=== PATIENT | female | born 1985 | race Hispanic/Latino ===

== ENCOUNTER 2016-09-27 14:36 | Inpatient (IN) | payer OTHER ==
[~2016-09-27] VITALS: Ht 160 cm; Wt 80.0 kg
[2016-09-27] VITALS (13 sets, daily range): BP systolic 112–140; BP diastolic 61–86
[~2016-09-27 14:36] MED LIST: PREN27TA3 PO
[2016-09-27] MEDS ORDERED: PENICILLIN G POTASSIUM IV 5 MU in D5W MINI-BAG PLUS 100 ML IV STA (16:35)
[2016-09-27] MEDS ORDERED: LR 1,000 ML IV SCH (16:35)
[2016-09-27] MEDS ORDERED: OXYTOCIN DRIP 30 UNITS in APPROPRIATE DILUENT 1 EA IV SCH (16:45)
[2016-09-27 17:03] LABS: MEAN CORPUSCULAR HEMOGLOBIN 32.4 pg (27.0-33.0); MEAN CORPUSCULAR HGB CONC 35.1 g/dl (32.0-36.5); MEAN CORPUSCULAR VOLUME 92.1 fl (80.0-96.0); WHITE BLOOD COUNT 7.4 K/mm3 (4.0-10.0)
[2016-09-28] VITALS (41 sets, daily range): BP systolic 109–160; BP diastolic 63–93
[2016-09-28] MEDS ORDERED: FENTANYL 2MCG/ML ROPIVACAINE 0.2% NACL 250 ML CADD As Ordered ONE (01:22)
[2016-09-28] MEDS ORDERED: PENICILLIN G POTASSIUM IV 5 MU in D5W MINI-BAG PLUS 100 ML IV STA (01:26)
[2016-09-28] MEDS ORDERED: FENTANYL/ROPIVACAINE/NACL CADD 250 ML EPIDURAL SCH (04:00)
[2016-09-28] MEDS ORDERED: NALOXONE INJ 0.4 MG/1 ML VIAL (J2310) IV PRN (04:00)
[2016-09-28] MEDS ORDERED: EPIDURAL/PCA KEYS XX PRN (04:00)
[2016-09-28] MEDS ORDERED: ONDANSETRON 4MG/2ML VIAL (J2405) IV PRN ×2 (04:00→07:45)
[2016-09-28] MEDS ORDERED: diphenhydrAMINE INJ 50MG/ML VIAL (J1200) IV PRN (04:00)
[2016-09-28] MEDS ORDERED: ePHEDrine SULFATE 25 MG/5 ML(5MG/ML) SYRINGE IV PRN (04:00)
[2016-09-28] MEDS ORDERED: LACTATED RINGER'S 1000 ML IV PRN (04:00)
[2016-09-28] MEDS ORDERED: EPIDURAL COMMENT XX SCH (04:00)
[2016-09-28] MEDS ORDERED: REFRIGERATOR IV KEYS XX PRN (04:00)
[2016-09-28] MEDS ORDERED: PENICILLIN G POTASSIUM IV 2.5 MU in D5W 100 ML IV SCH (05:30)
[2016-09-28] MEDS ORDERED: ERYTHROMYCIN OPHTH OINT As Ordered ONE (06:30)
[2016-09-28] MEDS ORDERED: PHYTONADIONE 1 MG/0.5 ML SYRINGE (J3430) As Ordered ONE (06:30)
[2016-09-28] MEDS ORDERED: HEPATITIS B VAC *BIRTH DOSE ONLY*(ENGERIX) 10 MCG/0.5 ML SYRINGE As Ordered ONE (06:30)
[2016-09-28] MEDS ORDERED: OXYTOCIN DRIP 30 UNITS in APPROPRIATE DILUENT 1 EA IV SCH (07:43)
[2016-09-28] MEDS ORDERED: PROMETHAZINE 25 MG TAB PO PRN (07:45)
[2016-09-28] MEDS ORDERED: MEASLES,MUMPS,RUBELLA VACCINE INJ (MMR-II) (90707) SC SCH (07:45)
[2016-09-28] MEDS ORDERED: RHOGAM 300 MCG (1500 IU) INJ (J2790) IM SCH (07:45)
[2016-09-28] MEDS ORDERED: DIBUCAINE 1% OINTMENT 30GM TOP PRN (07:45)
[2016-09-28] MEDS ORDERED: METHYLERGONOVINE MALEATE 0.2 MG/ML VIAL (J2210) IM PRN (07:45)
[2016-09-28] MEDS: DOCUSATE SODIUM 100 MG CAP PO SCH ×2 (09:37→22:53)
[2016-09-28] MEDS: IBUPROFEN 800 MG TAB PO PRN ×2 (09:38→15:58)
[2016-09-28] MEDS: PRENATAL VITAMIN TAB PO SCH (09:38)
--- NOTE | 2016-09-28 09:43 | IPNPDOC ---
Text Note Date of Service The patient was seen on 09/28/16 at 09:37. NOTE 3.5 hrs s/p c/b significant edema and lacs/repair. Packing in place by Dr Amaya. Alerted by RN that she was tachycardia with nl BP's however. UO is adequate and she is not dizzy or light-headed. EBL was 500. VS noted FH at U, firm Packing in place, not blood soaked. My plan is to get a CBC now as it has been almost 4 hrs since delivery time to document where we're at now. Possibility of blood accumulating behind the packing although unlikely. Plan on removal of packing this afternoon/evening Sessions VS,Nithin, I+O VSNithin, I+O Laboratory Tests 09/27/16 16:52 Red Blood Count 3.78 L, Mean Corpuscular Volume 92.1, Mean Corpuscular Hemoglobin 32.4, Mean Corpuscular Hemoglobin Concent 35.1, Red Cell Distribution Width 14.0 Vital Signs Date Time Temp Pulse Resp B/P Pulse Ox O2 Delivery O2 Flow Rate FiO2 09/28/16 07:35 98.2 110 18 116/68 09/28/16 02:30 98 SESSIONS,TAMAR Ribera MD Sep 28, 2016 09:43
[2016-09-28 10:11] LABS: BASO % 0.2 % (0.0-1.0); EOS # 0.1 K/mm3 (0.0-0.50); EOS % 0.5 % (0.0-3.0); LARGE UNSTAINED CELL # 0.2 K/mm3 (0.0-0.4); LARGE UNSTAINED CELL % 1.4 % (0.0-4.0); LYMPH # 1.2 K/mm3 (1.5-4.5); LYMPH % 9.3 % (24.0-44.0); MEAN CORPUSCULAR HEMOGLOBIN 31.9 pg (27.0-33.0); MEAN CORPUSCULAR HGB CONC 34.6 g/dl (32.0-36.5); MEAN CORPUSCULAR VOLUME 92.2 fl (80.0-96.0); MONO # 0.7 K/mm3 (0.0-0.8); MONO % 5.4 % (0.0-5.0); NEUTROPHILS # 10.4 K/mm3 (1.8-7.7); NEUTROPHILS % 83.2 % (36.0-66.0); PLATELET COUNT, AUTOMATED 138 k/mm3 (150-450); WHITE BLOOD COUNT 12.5 K/mm3 (4.0-10.0)
[2016-09-28] MEDS: ACETAMINOPHEN 500 MG TAB PO PRN ×2 (12:57→22:54)
--- NOTE | 2016-09-28 22:17 | IPNPDOC ---
Text Note Date of Service The patient was seen on 09/28/16 at 22:13. NOTE Earlier CBC unremarkable and expected with EBL. Pt and nurse states bleeding has been minimal. No complaints, wants her packing and starks out. Ambulatory, pain controlled. VSS, slight intermittent tachycardia Packing all removed, no significant VB noted Pt with significant relief with removal a/p: Doing well. Starks out, DTV 6 hrs. Will see in the AM. Sessions MD ALCAZAR,Nithin, I+O Nithin ALCAZAR I+O Laboratory Tests 09/28/16 09:55 Red Blood Count 3.44 L, Mean Corpuscular Volume 92.2, Mean Corpuscular Hemoglobin 31.9, Mean Corpuscular Hemoglobin Concent 34.6, Red Cell Distribution Width 14.0, Neutrophils (%) (Auto) 83.2 H, Lymphocytes (%) (Auto) 9.3 L, Monocytes (%) (Auto) 5.4 H, Eosinophils (%) (Auto) 0.5, Basophils (%) ( Auto) 0.2, Neutrophils # (Auto) 10.4 H, Lymphocytes # (Auto) 1.2 L, Monocytes # (Auto) 0.7, Eosinophils # (Auto) 0.1, Basophils # (Auto) 0.0 Vital Signs Date Time Temp Pulse Resp B/P Pulse Ox O2 Delivery O2 Flow Rate FiO2 09/28/16 18:00 97.5 103 18 127/71 09/28/16 11:30 98 SESSIONS,TAMAR Ribera MD Sep 28, 2016 22:17
[2016-09-29 06:06] VITALS: BP 117/61
[2016-09-29 06:37] LABS: MEAN CORPUSCULAR HEMOGLOBIN 32.7 pg (27.0-33.0); MEAN CORPUSCULAR HGB CONC 34.7 g/dl (32.0-36.5); MEAN CORPUSCULAR VOLUME 94.3 fl (80.0-96.0); RED CELL DISTRIBUTION WIDTH 14.4 % (11.5-14.5); WHITE BLOOD COUNT 8.3 K/mm3 (4.0-10.0)
--- NOTE | 2016-09-29 07:32 | IPN ---
DATE: 09/28/2016 This lady requested circumcision of her male after discussing the risks and benefits of circumcision, the penile block, aftercare, the medical and nonmedical indications. The patient expressed understanding of the penile block and aftercare. Signed and witnessed the consent form. We await the clearance by the senior ruby developer.
[2016-09-29] MEDS: DOCUSATE SODIUM 100 MG CAP PO SCH ×2 (07:37→21:44)
[2016-09-29] MEDS: PRENATAL VITAMIN TAB PO SCH (07:37)
--- NOTE | 2016-09-29 07:40 | IPNPDOC ---
Text Note Date of Service The patient was seen on 09/29/16 at 07:35. NOTE PPD1 prog note States feeling well, better with the starks/packing out. Has voided mult times and UO is adeq. Breast feeding well, VB slowing, very little and period like since packing removed. Ambulatory VS stable, reviewed, afebrile and upper 90's low 100's HR, nl BP Ut at U-2, firm HCT 24.5, PLT 105 this AM a/p: Doing better, likely at HCT [place], low PLT's also noted, admit PLT's were 147 and admit HCT was 34.8. Will plan on watching her for one more day and rpt CBC today at 1500. PLan d/w RN and Pt. Sessions VS,Nithin, I+O VSNithin I+O Laboratory Tests 09/28/16 09:55 Red Blood Count 3.44 L, Mean Corpuscular Volume 92.2, Mean Corpuscular Hemoglobin 31.9, Mean Corpuscular Hemoglobin Concent 34.6, Red Cell Distribution Width 14.0, Neutrophils (%) (Auto) 83.2 H, Lymphocytes (%) (Auto) 9.3 L, Monocytes (%) (Auto) 5.4 H, Eosinophils (%) (Auto) 0.5, Basophils (%) ( Auto) 0.2, Neutrophils # (Auto) 10.4 H, Lymphocytes # (Auto) 1.2 L, Monocytes # (Auto) 0.7, Eosinophils # (Auto) 0.1, Basophils # (Auto) 0.0 09/29/16 06:23 Red Blood Count 2.60 L, Mean Corpuscular Volume 94.3, Mean Corpuscular Hemoglobin 32.7, Mean Corpuscular Hemoglobin Concent 34.7, Red Cell Distribution Width 14.4 Vital Signs Date Time Temp Pulse Resp B/P Pulse Ox O2 Delivery O2 Flow Rate FiO2 09/29/16 06:06 97.0 99 16 117/61 09/28/16 11:30 98 I&O- Last 24 Hours up to 6 AM 09/29/16 06:00 Intake Total 3190 ml Output Total 2750 ml Balance 440 ml SESSIONS,TAMAR Ribera MD Sep 29, 2016 07:40
[2016-09-29] MEDS: ACETAMINOPHEN 500 MG TAB PO PRN ×2 (07:57→21:45)
[2016-09-29] MEDS ORDERED: ADACEL/BOOSTRIX VACCINE (DIPHTH/PERTUSS/ACELL/TETANUS)0.5ML SYR (90715) IM ONE (09:00)
[2016-09-29] MEDS: IBUPROFEN 800 MG TAB PO PRN (15:47)
[2016-09-29 15:48] LABS: MEAN CORPUSCULAR HEMOGLOBIN 33.3 pg (27.0-33.0); MEAN CORPUSCULAR HGB CONC 35.6 g/dl (32.0-36.5); MEAN CORPUSCULAR VOLUME 93.5 fl (80.0-96.0); RED CELL DISTRIBUTION WIDTH 14.2 % (11.5-14.5); WHITE BLOOD COUNT 8.6 K/mm3 (4.0-10.0)
[2016-09-29 18:00] VITALS: BP 117/60
[2016-09-30 05:21] VITALS: BP 120/73
--- NOTE | 2016-09-30 06:28 | IPNPDOC ---
Text Note Date of Service The patient was seen on 09/30/16 at 06:24. NOTE PPD2 prog note States feeling great, no complaints. Breast feeding well, VB still slowing. Ambulatory. Bonding. no CP/LP/SOB. VS stable, reviewed, afebrile and upper 90's low 100's HR, nl BP Ut at U-2, firm LE no CCE Yest AM HCT 24.5, PLT 105 Yest 1500 HCT 24.6, PLT 112 a/p: Doing better, stable HCT/PLT's. D/C to home. Sessions MD ALCAZAR,Nithin, I+O VSNithin I+O Laboratory Tests 09/29/16 15:33 Red Blood Count 2.63 L, Mean Corpuscular Volume 93.5, Mean Corpuscular Hemoglobin 33.3 H, Mean Corpuscular Hemoglobin Concent 35.6, Red Cell Distribution Width 14.2 Vital Signs Date Time Temp Pulse Resp B/P Pulse Ox O2 Delivery O2 Flow Rate FiO2 09/30/16 05:21 99.0 115 16 120/73 09/28/16 11:30 98 I&O- Last 24 Hours up to 6 AM 09/30/16 06:00 Intake Total 500 ml Output Total 200 ml Balance 300 ml SESSIONS,TAMAR Ribera MD Sep 30, 2016 06:28
--- NOTE | 2016-09-30 06:33 | DS.PDOC ---
Discharge Summary General Date of Admission Sep 27, 2016 at 14:36 Date of Discharge Discharge Summary COMPLICATIONS/CHIEF COMPLAINT: Induction due to pending deployment of in a few days ADMISSION DIAGNOSES: 1. Induction of labor, history of prior DISCHARGE DIAGNOSES: 1. Successful HOSPITAL COURSE: Patient was admitted for Induction and delivered a healthy male. Had significant edema and many lacerations and a delivery EBL 500. Dr Amaya (delivering MD) packed her vagina and placed a starks catheter. This was all removed ~15 hours after delivery and she had an uncomplicated course thereafter. Her HCT serena'd at 24.5, discharge HCT was 24.6. She had an intermittent slight tachycardia noted throughout the period but never had other abnormal vitals and was never symptomatic. DISCHARGE MEDICATIONS: Motrin, Tylenol, Colace, Lanolin, Nor QDay PHYSICAL EXAMINATION ON DISCHARGE: see prog note from this AM VITAL SIGNS: Please see below. DISCHARGE CONDITION: stable DISPOSITION: to home ACTIVITY: Nothing in the vagina for 6-8 weeks. Regular diet. DISCHARGE PLAN AND INSTRUCTIONS: follow up at 6 week visit Sessions Vital Signs/I&Os Vital Signs Date Time Temp Pulse Resp B/P Pulse Ox O2 Delivery O2 Flow Rate FiO2 09/30/16 05:21 99.0 115 16 120/73 09/28/16 11:30 98 I&O- Last 24 Hours up to 6 AM 09/30/16 06:00 Intake Total 500 ml Output Total 200 ml Balance 300 ml Laboratory Data CBC/BMP Laboratory Tests 09/29/16 15:33 Red Blood Count 2.63 L, Mean Corpuscular Volume 93.5, Mean Corpuscular Hemoglobin 33.3 H, Mean Corpuscular Hemoglobin Concent 35.6, Red Cell Distribution Width 14.2 Medications Scheduled Multivitamins/ ( 27-1 mg) 1 Tab Tab 1 TAB PO DAILY Allergies Coded Allergies: No Known Allergies (Verified Allergy, Unknown, 03/23/10) SESSIONS,TAMAR Ribera MD Sep 30, 2016 06:33
[2016-09-30] MEDS ORDERED: COLA100C PO (07:30)
[2016-09-30] MEDS ORDERED: MOTR200T44 PO (07:31)
[2016-09-30] MEDS ORDERED: TYLE500T78 PO (07:31)
[2016-09-30] MEDS ORDERED: ADACEL/BOOSTRIX VACCINE (DIPHTH/PERTUSS/ACELL/TETANUS)0.5ML SYR (90715) IM ONE (07:45)
[2016-09-30] MEDS: PRENATAL VITAMIN TAB PO SCH (07:59)
[2016-09-30] MEDS: DOCUSATE SODIUM 100 MG CAP PO SCH (07:59)
[2016-09-30] MEDS: IBUPROFEN 800 MG TAB PO PRN (08:00)
== END 2016-09-30 13:05 | disposition home or self-care (01) | DRG 775 ==
LOC: M LDI 14:36 → M OBS 09-28 11:58
PROVIDERS: ADMIT Obstetrics & Gynecology; ATTEND Obstetrics & Gynecology
PROC: 10E0XZZ Delivery of Products of Conception, External Approach (ICD-10-PCS; principal; 2016-09-27)
PROC: 3E033VJ Introduction of Other Hormone into Peripheral Vein, Percutaneous Approach (ICD-10-PCS; 2016-09-27)
PROC: 0KQM0ZZ Repair Perineum Muscle, Open Approach (ICD-10-PCS; 2016-09-28)
DX: O99.824 Streptococcus B carrier state complicating childbirth (principal); Z3A.39 39 weeks gestation of pregnancy; O70.1 Second degree perineal laceration during delivery; Z37.0 Single live birth

== ENCOUNTER 2018-02-05 11:50 | Emergency (ER) | payer OTHER ==
[2018-02-05 12:23] LABS: KETONE, URINE AUTO RFX NEGATIVE (NEGATIVE); LEUKOCYTE ESTERASE UR AUTO RFX NEGATIVE (NEGATIVE); MUCUS, URINE RFX SMALL (NEGATIVE); NITRITE, URINE AUTO RFX NEGATIVE (NEGATIVE); RBC, URINE AUTO RFX 38 /HPF (0-3); SPECIFIC GRAVITY UR AUTO RFX 1.012 (1.002-1.035); SQUAM EPITHELIAL CELL UR AURFX 0 /HPF (0-6); WBC, URINE AUTO RFX 0 /HPF (0-3)
[2018-02-05 13:29] LABS: BASO % 0.3 % (0.0-1.0); EOS # 0.2 10^3/uL (0.0-0.50); EOS % 2.2 % (0.0-3.0); HEMATOCRIT 39.1 % (36.0-47.0); HEMOGLOBIN 13.4 g/dl (12.0-15.5); IMMATURE GRANULOCYTE % 0.3 % (0-3.0); LYMPH # 0.7 10^3/uL (1.5-4.5); LYMPH % 8.8 % (24.0-44.0); MEAN CORPUSCULAR HGB CONC 34.3 g/dl (32.0-36.5); MEAN CORPUSCULAR VOLUME 87.7 fl (80.0-96.0); MONO # 0.3 10^3/uL (0.0-0.8); MONO % 4.3 % (0.0-5.0); NEUTROPHILS # 6.2 10^3/uL (1.8-7.7); NEUTROPHILS % 84.1 % (36.0-66.0); PLATELET COUNT, AUTOMATED 206 10^3/uL (150-450); RED BLOOD COUNT 4.46 10^6/uL (4.00-5.40); RED CELL DISTRIBUTION WIDTH 12.8 % (11.5-14.5); WHITE BLOOD COUNT 7.4 10^3/uL (4.0-10.0)
[2018-02-05] MEDS ORDERED: ISOVUE-370 76% 100ML VIAL (Q9967) As Ordered (13:56)
[2018-02-05] MEDS: ONDANSETRON 4MG/2ML VIAL (J2405) IV (13:59)
[2018-02-05] MEDS: NS 1,000 ML IV (13:59)
[2018-02-05 14:00] LABS: ALBUMIN 3.5 GM/DL (3.2-5.2); ALBUMIN/GLOBULIN RATIO 0.85 (1.00-1.93); ALKALINE PHOSPHATASE 63 U/L (45-117); ALT/SGPT 24 U/L (12-78); ANION GAP 5 MEQ/L (8-16); AST/SGOT 15 U/L (7-37); BILIRUBIN,TOTAL 0.6 MG/DL (0.2-1.0); BLOOD UREA NITROGEN 9 MG/DL (7-18); CALCIUM LEVEL 8.4 MG/DL (8.5-10.1); CARBON DIOXIDE LEVEL 26 MEQ/L (21-32); CHLORIDE LEVEL 110 MEQ/L (98-107); CREATININE FOR GFR 0.73 MG/DL (0.55-1.30); GLOMERULAR FILTRATION RATE > 60.0 (>60); GLUCOSE, FASTING 91 MG/DL (70-100); LIPASE 136 U/L (73-393); POTASSIUM SERUM 3.7 MEQ/L (3.5-5.1); SODIUM LEVEL 141 MEQ/L (136-145); TOTAL PROTEIN 7.6 GM/DL (6.4-8.2)
== END 2018-02-05 15:13 | disposition home or self-care (01) ==
LOC: M ED 11:50
DX: N94.89 Other specified conditions associated with female genital organs and menstrual cycle (principal); R10.31 Right lower quadrant pain; R10.33 Periumbilical pain; J02.9 Acute pharyngitis, unspecified; D57.3 Sickle-cell trait
CPT/HCPCS: J2405

== ENCOUNTER 2018-08-11 20:27 | Emergency (ER) | payer OTHER ==
[2018-08-11] MEDS: KETOROLAC 30 MG/ML VIAL (J1885) IV (21:30)
[2018-08-11] MEDS: NS 1,000 ML IV (21:30)
[2018-08-11 21:38] LABS: BASO % 0.2 % (0.0-1.0); EOS # 0.1 10^3/uL (0.0-0.50); EOS % 1.3 % (0.0-3.0); HEMATOCRIT 38.2 % (36.0-47.0); HEMOGLOBIN 12.9 g/dl (12.0-15.5); IMMATURE GRANULOCYTE % 0.4 % (0-3.0); LYMPH # 0.7 10^3/uL (1.5-4.5); LYMPH % 12.4 % (24.0-44.0); MEAN CORPUSCULAR HEMOGLOBIN 30.2 pg (27.0-33.0); MEAN CORPUSCULAR HGB CONC 33.8 g/dl (32.0-36.5); MEAN CORPUSCULAR VOLUME 89.5 fl (80.0-96.0); MONO # 0.3 10^3/uL (0.0-0.8); MONO % 5.8 % (0.0-5.0); NEUTROPHILS # 4.3 10^3/uL (1.8-7.7); NEUTROPHILS % 79.9 % (36.0-66.0); PLATELET COUNT, AUTOMATED 143 10^3/uL (150-450); RED BLOOD COUNT 4.27 10^6/uL (4.00-5.40); RED CELL DISTRIBUTION WIDTH 12.6 % (11.5-14.5); WHITE BLOOD COUNT 5.4 10^3/uL (4.0-10.0)
[2018-08-11 21:52] LABS: D-DIMER QUANT 1063.81 ng/ml (<500)
[2018-08-11] MEDS: ONDANSETRON 4MG/2ML VIAL (J2405) IV (21:58)
[2018-08-11 22:08] LABS: ANION GAP 6 MEQ/L (8-16); BLOOD UREA NITROGEN 11 MG/DL (7-18); CALCIUM LEVEL 8.3 MG/DL (8.5-10.1); CARBON DIOXIDE LEVEL 27 MEQ/L (21-32); CHLORIDE LEVEL 108 MEQ/L (98-107); CREATININE FOR GFR 0.78 MG/DL (0.55-1.30); GLOMERULAR FILTRATION RATE > 60.0 (>60); GLUCOSE, FASTING 94 MG/DL (70-100); POTASSIUM SERUM 4.7 MEQ/L (3.5-5.1); SODIUM LEVEL 141 MEQ/L (136-145)
[2018-08-11 22:30] LABS: APPEARANCE, URINE CLEAR (CLEAR); BACTERIA, URINE AUTO NEGATIVE (NEGATIVE); BILIRUBIN, URINE AUTO NEGATIVE (NEGATIVE); BLOOD, URINE BLOOD 2+ (NEGATIVE); COLOR, URINE YELLOW (YELLOW); GLUCOSE, URINE (UA) AUTO NEGATIVE (NEGATIVE); KETONE, URINE AUTO NEGATIVE (NEGATIVE); LEUKOCYTE ESTERASE, URINE AUTO NEGATIVE (NEGATIVE); NITRITE, URINE AUTO NEGATIVE (NEGATIVE); PROTEIN, URINE AUTO NEGATIVE (NEGATIVE); RBC, URINE AUTO 5 /HPF (0-3); SPECIFIC GRAVITY URINE AUTO 1.015 (1.002-1.035); SQUAMOUS EPITHELIAL CELL UR AU 1 /HPF (0-6); UROBILINOGEN, URINE AUTO 0.2 mg/dL (0.0-2.0); WBC, URINE AUTO 1 /HPF (0-3)
[2018-08-11] MEDS ORDERED: ISOVUE-370 76% 100ML VIAL (Q9967) As Ordered (23:09)
== END 2018-08-12 00:49 | disposition home or self-care (01) ==
LOC: M ED 08-12 00:49
DX: R10.9 Unspecified abdominal pain (principal); R11.0 Nausea; R06.02 Shortness of breath; M79.661 Pain in right lower leg; D57.3 Sickle-cell trait; Z80.51 Family history of malignant neoplasm of kidney; Z79.899 Other long term (current) drug therapy; Z79.1 Long term (current) use of non-steroidal anti-inflammatories (NSAID)
CPT/HCPCS: J2405

== ENCOUNTER 2019-06-23 04:58 | Inpatient (IN) | payer OTHER ==
[2019-06-23] VITALS (9 sets, daily range): BP systolic 90–127; BP diastolic 56–74
[~2019-06-23] VITALS: Ht 160 cm; Wt 86.8 kg
[~2019-06-23 04:58] MED LIST changes: +BENT10CA PO; +COLA100C5 PO; +MOTR200T44 PO; +NAPR-837 PO; +PROT1TAB2 PO; +TYLE500T78 PO; +ZOFR4TAB14 PO
[2019-06-23] MEDS ORDERED: LR 500 ML IV ONE (05:30)
[2019-06-23] MEDS ORDERED: ceFAZolin 2 GM/D5W 50 ML IV BAG (J0690 PER 500MG) As Ordered ONE (05:30)
[2019-06-23] MEDS ORDERED: BICITRA 30ML SOLN UDC As Ordered ONE (05:30)
[2019-06-23] MEDS ORDERED: ceFAZolin SOD 2 GM in IV 1 EA IV ONE (05:30)
[2019-06-23] MEDS ORDERED: BICITRA 30ML SOLN UDC PO ONE (05:45)
[2019-06-23 06:01] LABS: HEMATOCRIT 33.7 % (36.0-47.0); HEMOGLOBIN 11.6 g/dl (12.0-15.5); MEAN CORPUSCULAR HEMOGLOBIN 32.9 pg (27.0-33.0); MEAN CORPUSCULAR HGB CONC 34.4 g/dl (32.0-36.5); MEAN CORPUSCULAR VOLUME 95.5 fl (80.0-96.0); PLATELET COUNT, AUTOMATED 128 10^3/uL (150-450); RED BLOOD COUNT 3.53 10^6/uL (4.00-5.40); WHITE BLOOD COUNT 7.6 10^3/uL (4.0-10.0)
[2019-06-23] MEDS ORDERED: diphenhydrAMINE INJ 50MG/ML VIAL (J1200) IV PRN (08:01)
[2019-06-23] MEDS ORDERED: ONDANSETRON 4MG/2ML VIAL (J2405) IV PRN ×3 (08:01→09:45)
[2019-06-23] MEDS ORDERED: NALBUPHINE HCL 10 MG/ML AMP (J2300) IV PRN ×2 (08:01→09:45)
[2019-06-23] MEDS ORDERED: NALOXONE INJ 0.4 MG/1 ML VIAL (J2310) IV PRN ×2 (08:01)
[2019-06-23] MEDS ORDERED: METOCLOPRAMIDE INJ 10MG/2ML VIAL (J2765) IV PRN (08:01)
[2019-06-23] MEDS ORDERED: MORPHINE PRES-FREE INJ 10 MG/10 ML VIAL (J2274) As Ordered ONE (08:21)
[2019-06-23] MEDS ORDERED: BUPIVACAINE/DEXTROSE 0.75% 2 ML AMP As Ordered ONE (08:21)
[2019-06-23] MEDS ORDERED: ONDANSETRON 4MG/2ML VIAL (J2405) As Ordered ONE (08:21)
[2019-06-23] MEDS ORDERED: dexameTHASONE 4 MG/ML 1ML VIAL (J1100) As Ordered ONE (08:21)
[2019-06-23] MEDS ORDERED: PHENYLephrine HCL 500 MCG/5 ML (100MCG/ML) SYRINGE (J2370) As Ordered ONE (08:21)
[2019-06-23] MEDS ORDERED: ePHEDrine SULFATE 25 MG/5 ML(5MG/ML) SYRINGE As Ordered ONE (08:21)
[2019-06-23] MEDS ORDERED: OXYTOCIN INJ 10 UNITS/ML VIAL (J2590) As Ordered ONE ×2 (08:21→08:28)
[2019-06-23] MEDS ORDERED: KETOROLAC 60 MG/2 ML VIAL (J1885) As Ordered ONE (08:21)
--- NOTE | 2019-06-23 09:27 | HPEPDOC ---
Obstetrical History & Physical General Date of Admission Jun 23, 2019 at 04:58 History of Present Illness OB Considerations: - hx PLTCS- planned RLTCS and BTL on Jun - Satisfied Parity: wants BTL with ERLTCS - Sickle cell trait; [ x ] FOB NEG; re-assess U/C at 28 weeks <50K, UA/Cx today for hematuria - enlarged thyroid; [ x] TSH: 1.180 - excessive weight gain- counseled; surveillance - Gestational thrombocytopenia (PLT 130 at 28 weeks)- repeat CBC at 36 120 Allyson is a 34yo at 37+5wks by LMP (ILEANA [id number]) presents for ERLTCS and BTL. Consents were obtained, patient wishes to proceed. She denies regular contractions, vaginal bleeding, or LOF. Reports movement. Chief Complaint: section Information Provided By: Patient Age: 34 : 4 Term: 3 Pre-term: 0 Abortions: 0 Livin Care Care: Good Care Dating Final EDC: Jun 30, 2019 Past Medical History Past Obstetrical History : Past Obstetrical History: Multigravida (G1: 2009 - , G2: 2010 - C/S NRFHT, G3: 2016 - PPH?) CAD OPERATOR History: Abnormal Pap Past Medical History Medical History seasonal Allergies, history of Kidney Stones Surgical History: section, Other (Ankle Surgery) Family History Family History Sickle Cell Trait Social History Marital Status: Family situation: Spouse/partner home Psychosocial History: No pertinent psych hx * Smoker: non-smoker Alcohol: Denies Drugs: denies Imunizations Tdap status: current Influenza Status: needs Allergies Coded Allergies: No Known Allergies (Verified , 08/11/18) Medications Scheduled Pnv,Calcium 72/Iron/Folic Acid ( Vitamin Plus Low Iron) 1 Tab Tab, 1 TAB PO DAILY Physical Examination Physical Examination GENERAL: Alert and oriented times three. ABDOMEN: Gravid and non-tender to touch. FETUS: Is Breech. HEART RATE: Regular rate and rhythm. LUNGS: Clear to auscultation (CTA). EXTREMITIES: No edema. Vital Signs/I&O Vital Signs Date Time Temp Pulse Resp B/P (MAP) Pulse Ox O2 Delivery O2 Flow Rate FiO2 06/23/19 05:21 98.0 108 16 120/71 (87) Laboratory Data 24H LABS Laboratory Tests 2 06/22/19 23:04: Serology Scanned Report Hepatitis B Testing 06/23/19 05:43: Nucleated Red Blood Cells % (auto) 0.0 CBC/BMP Laboratory Tests 06/23/19 05:43 Red Blood Count 3.53 L, Mean Corpuscular Volume 95.5, Mean Corpuscular Hemoglobin 32.9, Mean Corpuscular Hemoglobin Concent 34.4, Red Cell Distribution Width 13.9 Urine Culture: Other (Mixed Bernice) Pertinent Laboratoy Data Blood Type: A+ RBC Antibody Screen: Negative HIV: Negative Hepatitis B: Negative Hepatitis C: Unknown Rapid Plasma Reagin: Nonreactive Rubella: Immune Varicella: Immune Chlamydia/Gonorrhea: Negative Group B Streptococcus: Negative Quad Screen Test: Declined Cystic Fibrosis: Declined Glucose Tolerance Test: 102 Anatomy Ultrasound Ultrasound Date: February 10, 2019 Placenta Location: Posterior Normal Anatomy: Yes Placenta Previa: No Steroid Therapy Steroid Therapy: No Assessment Heart Rate (FHR): 130 Variability: Moderate Accelerations: Positive Decelerations: None Tocometer Contractions: Yes Frequency: other (one) Multi-drug resistant Organism: No history of MDRO Assessment/Plan Assessment Allyson is a 34yo at 37+5wks by LMP (ILEANA [id number]) presents for ERLTCS and BTL. Cat I FHT. Plan Admit and orient. Lamp Replacer and consent. Diet: [NPO]. Group B Streptococcus (GBS) [negative]. Labs and intravenous (IV) per unit protocol. Ancef 2gm, Bicitra 30mL Lactated Ringers (LR): Bolus [500] mL, then at [125] mL/hr. ERLTCS with BTL Maggie Venegas DO Labor and Delivery Counseling ERLTCS: discussed R/B/I/A with patient. Discussed risk to include but not limited to: infection, bleeding, transfusion and risk of transfusion/ hysterectomy, damage to other tissues/organs, risk to fetus, risk to future , risk of anesthesia and risk of surgery to include maternal or . Informed consent obtained. She wishes to proceed. BTL: patient reports she has satisfied parity, and has been counseled regarding BTL. She would like to proceed with BTL. I briefly re-iterated that this is a meant to be a permanent procedure, discussed other reversible options of control. Discussed risk of ectopic after tubal and risk of regret. She would like to proceed with BTL. MAGGIE VENEGAS. DO Jun 23, 2019 09:27
[2019-06-23] MEDS ORDERED: DIBUCAINE 1% OINTMENT 30GM TOP PRN (09:30)
[2019-06-23] MEDS ORDERED: RHOGAM 300 MCG (1500 IU) INJ (J2790) IM SCH (09:30)
[2019-06-23] MEDS ORDERED: ACETAMINOPHEN 500 MG TAB PO PRN (09:30)
[2019-06-23] MEDS ORDERED: ACETAMINOPHEN TAB 650MG DOSE (2X325MG) PO PRN (09:30)
[2019-06-23] MEDS ORDERED: DOCUSATE SODIUM 100 MG CAP PO PRN (09:30)
[2019-06-23] MEDS ORDERED: MEASLES,MUMPS,RUBELLA VACCINE INJ (MMR-II) (90707) SC SCH (09:30)
[2019-06-23] MEDS ORDERED: METHYLERGONOVINE MALEATE 0.2 MG TAB PO PRN (09:30)
[2019-06-23] MEDS ORDERED: fentaNYL 100 MCG/2 ML INJECTION (J3010) IV PRN (09:45)
[2019-06-23] MEDS ORDERED: LR 1,000 ML IV SCH (09:45)
[2019-06-23] MEDS ORDERED: PERCOCET 5MG/325MG TAB PO PRN (09:45)
[2019-06-23] MEDS: LR 1,000 ML IV SCH ×3 (10:30→22:00)
--- NOTE | 2019-06-23 11:14 | DNPDOC ---
[facility] Delivery Note Delivery Note DATE OF DELIVERY: [23Jun2019] PREDELIVERY DIAGNOSIS: 1. History of Primary Low Transverse Section, desires Repeat 2. SIUP at [39]-[0]/7 weeks' gestation 3. Sickle Cell Trait 4. Gestational Thrombocytopenia (PLT 126) 5. Satisfied Parity POST DELIVERY DIAGNOSIS: 1. History of Primary Low Transverse Section, desires Repeat 2. SIUP at [39]-[0]/7 weeks' gestation 3. Sickle Cell Trait 4. Gestational Thrombocytopenia (PLT 126) 5. Satisfied Parity 6. Malpresentation, Double Footling Breech 7. Single Live , Female APGARs 9/10 PROCEDURE: [Elective Repeat low transverse section]. APPLIED RESEARCHER: Dr. Venegas ANESTHESIA: Dr. Aleman ESTIMATED BLOOD LOSS: [900] mL. FINDINGS: [7] pound [4] ounce (3300gm) Female , Score [9]/[10], nuchal cord loose x1, body cord loose x1. DELIVERY SUMMARY: See Dictation # [id number] TEETEE VENEGAS DO Jun 23, 2019 11:14
--- NOTE | 2019-06-23 11:42 | RO ---
DATE OF OPERATION: 06/23/2019 PREDELIVERY DIAGNOSIS: 1. History of Primary Low Transverse Section, desires Repeat 2. SIUP at [39]-[0]/7 weeks' gestation 3. Sickle Cell Trait 4. Gestational Thrombocytopenia (PLT 126) 5. Satisfied Parity POST DELIVERY DIAGNOSIS: 1. History of Primary Low Transverse Section, desires Repeat 2. SIUP at [39]-[0]/7 weeks' gestation 3. Sickle Cell Trait 4. Gestational Thrombocytopenia (PLT 126) 5. Satisfied Parity 6. Malpresentation, Double Footling Breech 7. Single Live , Female APGARs 9/10 PROCEDURES PERFORMED: 1. Elective repeat low transverse section. 2. Bilateral tubal ligation. SURGEON: Dr. Maggie Oconnell POWER REACTOR OPERATOR: Dr. Avinash Zhao ANESTHESIA: Dr. Aleman. ESTIMATED BLOOD LOSS: 900 mL FLUIDS ADMINISTERED: 2000 mL of lactated Ringer solution. URINE OUTPUT: 400 mL. MEDICATIONS AND DRAINS: Medications: The patient received 2 grams of Ancef prior to surgery. MATERIALS TO LABORATORY: Yes. Bilateral tubal segments in separate containers. COMPLICATIONS: None noted. INDICATION: Allyson is a 34-year-old -0-0-3 at 39 weeks' gestation desiring elective repeat with a tubal ligation. She was counseled during her on both an elective repeat and a bilateral tubal ligation and wishes to proceed. Informed consent was obtained, and all questions were answered. OPERATIVE FINDINGS: Low transverse skin and fascial incisions, clear amniotomy, delivered atraumatic, female, breech, normal uterus, tubes and ovaries bilaterally, [place] BTL performed, hemostatic closure. DESCRIPTION OF THE PROCEDURE: The risks, benefits, indications, and alternatives of the procedure were reviewed with the patient, and informed consent was obtained. The patient was taken to the operating room, where regional anesthesia was obtained without difficulty and found to be adequate. She was then prepped and draped in a normal sterile fashion in the dorsal supine position with a leftward tilt. A Loera catheter was placed at this time, and a time-out was performed to identify the right patient and right planned procedure and verified with the operative team. A Pfannenstiel skin incision was made with a scalpel, carried down to the underlying fascial layer. The fascia was then incised in midline, and then extended the incision laterally with Rivera scissors. The superior aspect of the fascia was grasped with Zully clamps and elevated, and the underlying rectus muscle was dissected off and aided with sharp dissection with both scalpel and Rivera scissors. Attention was then turned to the inferior aspect and in a similar fashion tented and dissected off. The rectus muscles were then in the midline, and then peritoneum was identified and entered digitally. The peritoneal incision was then extended laterally manually with good visualization. The Mobius retractor was used for the duration of the surgery. The vesicouterine peritoneum was identified and entered sharply with Metzenbaum scissors and then extended laterally, and a bladder flap was created digitally. The lower uterine segment was identified and incised in a transverse fashion with a scalpel. The uterine incision was then extended laterally manually. The amniotic sac was artificially ruptured and clear fluid was noted. The was found to be in a double footling breech position, and the feet were grasped gently and guided through the hysterotomy up to the level of the hip. The was then wrapped in a blue towel and then gently guided out up to the level of the scapula, and using the Lovset maneuver to deliver first the right and then the left arm atraumatically, the infant's head delivered with gentle fundal pressure and Isidcokou-Caslwhw-Qtze maneuver. A body cord and a nuchal cord was noted loosely times one, was easily reduced. The baby cried spontaneously, and the nose and mouth were suctioned with bulb syringe. The cord was then doubly clamped, and the was handed off to our pediatric nurse. Cord blood was obtained per routine. The placenta was then removed manually, and the uterus was cleared of all clot and debris. The uterine incision was repaired with 0 Vicryl in a running locking fashion with a second imbricating layer of 0 Vicryl in a horizontal fashion. Hemostasis was noted at this time. Using a [place] clamp, the right fallopian tube was identified, and using cautery, creating a window in the mesosalpinx. Using plain gut sutures, the segment tub was ligated supriorly and inferiorly and the segment of tube removed with Metzenbaum scissors and sent to pathology. The same was done on the left side after identifying the fallopian tube, completing a [place] bilateral tubal ligation. The hysterotomy again was inspected and noted to be hemostatic. The Mobius retractor was removed. The pericolic gutters were again noted to be cleared of all clot and debris. The muscle bellies were then inspected, and there was small oozing on the left superior aspect near the rectus muscle and fascial junction, and a single interrupted lxkkyd-yb-vwske was placed with good hemostasis. The peritoneum was closed with 3-0 Vicryl in a running fashion. The fascia was then closed with 0 Vicryl in a running fashion, and the subcutaneous layer was closed with 2-0 Vicryl in a running fashion. The skin was closed with 4-0 Monocryl in a subcuticular fashion. The incision was then dressed with Steri-Strips and a pressure dressing applied. At the completion of the case, a bimanual was performed with good uterine tone and minimal vaginal bleeding. The patient tolerated the procedure well. Sponge, laps, instruments, and needle counts were correct times two. The patient was taken to the recovery room in stable condition. There were no complications noted at this time. NICHELLE
[2019-06-23] MEDS: KETOROLAC 30 MG/ML VIAL (J1885) IV SCH ×2 (15:08→21:07)
[2019-06-24 02:00] VITALS: BP 106/57
[2019-06-24] MEDS: KETOROLAC 30 MG/ML VIAL (J1885) IV SCH ×2 (02:47→09:17)
[2019-06-24] MEDS: LR 1,000 ML IV SCH (06:00)
[2019-06-24 06:02] VITALS: BP 118/54
[2019-06-24 06:44] LABS: MEAN CORPUSCULAR HEMOGLOBIN 33.3 pg (27.0-33.0); MEAN CORPUSCULAR HGB CONC 34.5 g/dl (32.0-36.5); MEAN CORPUSCULAR VOLUME 96.7 fl (80.0-96.0); PLATELET COUNT, AUTOMATED 100 10^3/uL (150-450); WHITE BLOOD COUNT 8.5 10^3/uL (4.0-10.0)
--- NOTE | 2019-06-24 07:04 | IPNPDOC ---
Progress Note Date of Service: Jun 24, 2019 Day#: 1 Progress Note SUBJECT: Allyson is a 34yo s/p Elective Repeat Low Transverse Section with a Bilateral Tubal Ligation at 39+0wks, on 23Jun2019 of [7] pound [4] ounce (3300gm) Female , Score [9]/[10], doing well day # [1]. She has been ambulating, voiding spontaneously without issue and tolerating regular diet. Breast feeding without issue. Reports lochia is like a normal period. Patient is ambulating well. OBJECTIVE: VITAL SIGNS: Within normal limits, afebrile. Alert and oriented times three. Breath sounds clear to auscultation. Heart rate: Regular rate and rhythm, no murmurs, rubs or gallops. Abdomen: Fundus firm at U-1. Soft, NTTP. Incision: C/D/I, pressure dressing removed this morning. [Minimal] lochia. ASSESSMENT: Allyson is a 34yo s/p Elective Repeat Low Transverse Cesa rean Section with a Bilateral Tubal Ligation at 39+0wks, on 23Jun2019 of [7] pound [4] ounce (3300gm) Female , Score [9]/[10], doing well day # [1]. Vitals within normal limits, afebrile, hemodynamically stable with no evidence of infection. PLAN: 1. Continue Routine Care 2. Tylenol and Motrin for pain. (Will refuse Percocet). 3. Encourage breast feeding and ambulation. 4. BTL completed for contraception. 5. Routine PP visit in 6 weeks in clinic. 6. Discharge to home on PPD2. VS, I&O, 24H, Fishbone Vital Signs/I&O Vital Signs Date Time Temp Pulse Resp B/P (MAP) Pulse Ox O2 Delivery O2 Flow Rate FiO2 06/24/19 06:02 99.5 89 18 118/54 (75) 06/24/19 02:00 98 I&O- Last 24 Hours up to 6 AM 06/24/19 06:00 Intake Total 4000 ml Output Total 3600 ml Balance 400 ml Laboratory Data 24H LABS Laboratory Tests 2 06/24/19 06:20: Nucleated Red Blood Cells % (auto) 0.0 CBC/BMP Laboratory Tests 06/24/19 06:20 Red Blood Count 3.00 L, Mean Corpuscular Volume 96.7 H, Mean Corpuscular Hemoglobin 33.3 H, Mean Corpuscular Hemoglobin Concent 34.5, Red Cell Distribution Width 13.6 TEETEE VENEGAS DO Jun 24, 2019 07:04
[2019-06-24] MEDS: PRENATAL VITAMINS CHEWABLE TABLET PO SCH (09:16)
[2019-06-24 12:15] VITALS: BP 119/66
[2019-06-24 14:00] VITALS: BP 127/74
[2019-06-24] MEDS: IBUPROFEN 800 MG TAB PO SCH (16:52)
[2019-06-24 18:16] VITALS: BP 124/73
[2019-06-24 22:00] VITALS: BP 129/87
[2019-06-25] MEDS: IBUPROFEN 800 MG TAB PO SCH ×2 (01:17→07:32)
[2019-06-25 01:24] VITALS: BP 131/87
[2019-06-25 05:45] VITALS: BP 117/70
[2019-06-25] MEDS: PRENATAL VITAMINS CHEWABLE TABLET PO SCH (07:32)
[2019-06-25] MEDS ORDERED: PERCOCET PO (08:33)
[2019-06-25] MEDS ORDERED: IBUP80TA PO (08:33)
[2019-06-25] MEDS ORDERED: DIBU10OI TOP (08:33)
[2019-06-25] MEDS ORDERED: ACET-683 PO (08:33)
[2019-06-25] MEDS ORDERED: COLA100C5 PO (08:33)
--- NOTE | 2019-06-25 08:40 | DSES ---
DATE OF ADMISSION: 06/23/2019 DATE OF DISCHARGE: This lady is a 4, now para 4, admitted for repeat section, satisfied parity, bilateral tubal ligation. She delivered a live female , 7 pounds 4 ounces (3300 grams), score of 9 and 10 at one and nine and five minutes, respectively. Had a cord times one. On her second day, we discussed phlebitis, cystitis, mastitis, endometritis and cellulitis, diet, exercise pain management, perineal breast and wound care. On discharge, her hemoglobin was 10.0, hematocrit 29.0 and platelets were 100. She suffers from gestational thrombocytopenia. Admitting platelets were 128, discharge platelets were 100 and she is not bleeding. Her vital signs on discharge blood pressure 117/70, respirations 16, pulse 86, temperature is 99.3. The rest of the examination unremarkable. Normocephalic, atraumatic. Neck full range of motion. Pupils equal and reactive to light. Distal pulses symmetric. No evidence deep venous thrombosis (DVT), pulmonary embolism (PE) or superficial phlebitis. Chest is clear bilaterally at bases. No wheezes or rhonchi. No costovertebral angle (CVA) tenderness. Abdomen soft. Uterus 2 below. Lochia is moderate. Four quadrant bowel sounds are noted. Incision is clean and dry. She has no rashes, lesions or pruritus. No arthralgia or myalgia. No complaint of joint pain. No complaint of cough, shortness of breath, dyspnea on exertion. No evidence of DVT, PE or superficial phlebitis. In summary, we have a term gestation delivered by repeat section a live female . Medications were dispensed at [place]. She has a 2 week incision check at [facility] and a 6 week check. The patient was given dispensing medication sheet. Discharged improved.
[2019-06-25] MEDS ORDERED: PRENCHW PO (10:35)
[2019-06-28] MEDS ORDERED: PERCOCET 5MG/325MG TAB PO PRN (15:00)
[2019-06-28] MEDS ORDERED: IBUPROFEN 800 MG TAB PO PRN (15:00)
[2019-06-28] MEDS ORDERED: IBUPROFEN 600 MG TAB PO PRN (15:00)
== END 2019-06-25 11:20 | disposition home or self-care (01) | DRG 784 ==
LOC: M LDI 04:58 → M OBS 11:49
PROVIDERS: ADMIT Obstetrics & Gynecology; ATTEND Obstetrics & Gynecology
PROC: 0UB70ZZ Excision of Bilateral Fallopian Tubes, Open Approach (ICD-10-PCS; 2019-06-23)
PROC: 10D00Z1 Extraction of Products of Conception, Low, Open Approach (ICD-10-PCS; principal; 2019-06-23 07:30)
DX: O34.211 Maternal care for low transverse scar from previous cesarean delivery (principal); O99.12 Other diseases of the blood and blood-forming organs and certain disorders involving the immune mechanism complicating childbirth; Z3A.39 39 weeks gestation of pregnancy; Z37.0 Single live birth; Z30.2 Encounter for sterilization; O99.284 Endocrine, nutritional and metabolic diseases complicating childbirth; E04.9 Nontoxic goiter, unspecified; D69.6 Thrombocytopenia, unspecified; O32.8XX0 Maternal care for other malpresentation of fetus, not applicable or unspecified; O69.81X0 Labor and delivery complicated by cord around neck, without compression, not applicable or unspecified; O69.82X0 Labor and delivery complicated by other cord entanglement, without compression, not applicable or unspecified